=== PATIENT | male | born 1955 | race Caucasian/White ===

== ENCOUNTER 2022-03-14 19:16 | Emergency (ER) | payer MEDICARE, BC ==
[2022-03-14] MEDS ORDERED: Aspirin 81 MG Tab.Chew PO ONE (19:30)
[2022-03-14] MEDS ORDERED: Clopidogrel 75 MG Tab PO ONE (19:30)
[2022-03-14] MEDS ORDERED: Nitroglycerin 0.4 MG Tab.SL SL PRN (19:30)
[2022-03-14] MEDS ORDERED: Ondansetron 4 MG/2 ML SDV IVPUSH ONE (19:30)
[2022-03-14] MEDS ORDERED: Famotidine 20 MG/2 ML SDV IVPUSH ONE (19:30)
[2022-03-14] MEDS ORDERED: Heparin Sodium 5,000 Units/ML Vial IVPUSH ONE (19:30)
[2022-03-14] MEDS ORDERED: Aspirin 81 MG Tab.Chew ONE (19:42)
[2022-03-14] MEDS ORDERED: Ticagrelor 90 MG Tab PO ONE ×2 (19:43→19:44)
[2022-03-14] MEDS ORDERED: Heparin Sodium/D5W 500 ML ONE (19:44)
[2022-03-14] MEDS ORDERED: Heparin Sodium/D5W 25,000 UNITS/500 ML BAG IV SCH (19:45)
[2022-03-14 19:57] LABS: TROPONIN I HIGH SENSITIVITY 4046.8 pg/mL (<=60.3)
== END 2022-03-14 20:09 ==
LOC: EDBD 19:16 → JP.ED 19:16
DX: I21.11 ST elevation (STEMI) myocardial infarction involving right coronary artery (principal); U07.1 COVID-19; F17.200 Nicotine dependence, unspecified, uncomplicated; Z79.899 Other long term (current) drug therapy
CPT/HCPCS: 36415; 71045; 80048; 83735; 84484; 85025; 85610; 85730; 93005; 96374; 96375; 96376; 99285; 99291; A9270; J1644; J2405; J3490; U0002; 93010